=== PATIENT | female | born 1950 | race Caucasian/White ===

== ENCOUNTER 2017-03-11 08:33 | Emergency (ER) | payer OTHER ==
[2017-03-11 08:33] VITALS: BP 153/73; PULSE 90; RESP 16; TEMP 98.4; O2SAT 96
[~2017-03-11 08:33] MED LIST: CHOL50006 PO; FLAXPOW PO; SIMV40 PO; SYNT125T PO
[2017-03-11] MEDS ORDERED: VITA2000 PO (08:45)
[2017-03-11] MEDS ORDERED: PERC5TAB12 PO (08:45)
[2017-03-11] MEDS ORDERED: ZOCO80TA PO (08:45)
[2017-03-11] MEDS ORDERED: DIPH25CA PO (08:45)
[2017-03-11] MEDS ORDERED: LEVO.075 PO (08:45)
--- NOTE | 2017-03-11 09:29 | PD ---
HPI Chief Complaint: Pain: Acute or Chronic Time Seen by Provider: 09:16 Travel History International Travel<30 days: No Contact w/Intl Traveler<30days: No Traveled to known affect area: No History of Present Illness HPI 66 year old female here with left index finger pain and swelling 2 days. Patient cannot recall insect bite, puncture wounds or trauma to the finger. She reports yesterday she noticed mild erythema and the area was pruritic. She denies fever or chills. She has full range of motion of finger. The area was increasingly more swollen and red this morning prompting her visit. Symptom severity is moderate. No alleviating factors. PFSH Past Medical History Arthritis: Yes Autoimmune Disease: Yes (RA) Cardiovascular Problems: Yes (CHOL) High Cholesterol: Yes Diminished Hearing: No Kidney Stones: Yes Thyroid Disease: Yes Influenza Vaccination: Yes ?: Not Past Surgical History Hysterectomy: Yes Social History Alcohol Use: No Tobacco Use: No Substance Use: No Allergies-Medications (Allergen,Severity, Reaction): Coded Allergies: codeine (Unverified Allergy, Severe, 03/11/17) gentamicin (Unverified Allergy, Severe, 03/11/17) levofloxacin (Unverified Allergy, Severe, 03/11/17) methylprednisolone (Unverified Allergy, Severe, 03/11/17) Reported Meds & Prescriptions Reported Meds & Active Scripts Active Reported Diphenhydramine (Diphenhydramine HCl) 25 Mg Cap 25 Mg PO Q4H PRN Synthroid (Levothyroxine Sodium) 75 Mcg Tab 75 Mcg PO DAILY Zocor (Simvastatin) 80 Mg Tab 80 Mg PO HS Percocet (Oxycodone-Acetaminophen) 5-325 mg Tab 1 Tab PO Q6H PRN Vitamin D3 (Cholecalciferol) 2,000 Unit Cap 2,000 Units PO DAILY Review of Systems Except as stated in HPI: all other systems reviewed are Neg General / Constitutional: No: Fever Physical Exam Narrative GENERAL: Alert well-appearing female in no distress. SKIN: Warm and dry. Notable erythema and mild swelling to the left second digit. HEAD: Normocephalic. EYES: No scleral icterus. No injection or drainage. NECK: Supple, trachea midline. No JVD or lymphadenopathy. CARDIOVASCULAR: Regular rate and rhythm without murmurs, gallops, or rubs. RESPIRATORY: Breath sounds equal bilaterally. No accessory muscle use. GASTROINTESTINAL: Abdomen soft, non-tender, nondistended. MUSCULOSKELETAL: No cyanosis, or edema. Left hand: Notable erythema and mild swelling to the left second digit. There is a small 0.5 cm area of deeper erythema with central scab surrounded by furniture detailer diffuse erythema. The area is tender. She has full range of motion of the finger. Brisk cap refill. Data Data Last Documented VS Vital Signs Date Time Temp Pulse Resp B/P (MAP) Pulse Ox O2 Delivery O2 Flow Rate FiO2 03/11/17 08:33 98.4 90 16 153/73 (99) 96 Room Air Orders Orders Finger ([id number]) (03/11/17 09:21) MDM Medical Decision Making Medical Screen Exam Complete: Yes Emergency Medical Condition: Yes Differential Diagnosis Abscess, cellulitis, infected insect bite, retained foreign body Narrative Course 66-year-old female with pain and swelling to the left second digit 2 days. Patient cannot recall injury or trauma. On exam she has notable erythema and swelling with a small central scab to the medial aspect of the middle phalange. Incision and drainage of the area was performed. X-ray reveal []. The finger was splinted. Patient be discharged home with Bactrim and Keflex. She was encouraged to follow up with her primary doctor for recheck on Monday. Return prior if she develops new or worsening symptoms Procedures Procedure Narrative INCISION AND DRAINAGE OF ABSCESS: The area was prepped and was sterilely draped. Topical ethyl chloride was used to anesthetize the area properly. A number [11] scalpel was used to make a [2] mm incision across the area of the abscess. The abscess was drained.Sterile dressing applied. Diagnosis Primary Impression: Cellulitis Qualified Codes: L03.012 - Cellulitis of left finger Referrals: Primary Care Physician Additional Instructions: Soak the area twice daily and warm Epson salt soaks. Apply clean dry dressing. Follow-up with your doctor in 2 days for wound recheck. Return prior if he developed new or worsening symptoms Scripts Cephalexin (Keflex) 500 Mg Cap 500 MG PO Q6H for Infection for 10 Days, #40 CAP 0 Refills Prov: Erica Montilla 03/11/17 Sulfamethoxazole-Trimethoprim (Bactrim DS) 800-160 Mg Tab 1 TAB PO BID for Infection, #20 TAB 0 Refills Prov: Erica Montilla 03/11/17 Disposition: 01 DISCHARGE HOME Condition: Stable Erica Montilla Mar 11, 2017 09:29
--- NOTE | 2017-03-11 09:48 | RADRPT ---
EXAM DATE/TIME: 03/11/2017 09:32 [facility] COMPARISON: No previous studies available for comparison. INDICATIONS : Pain and swelling left index finger, no known injury MEDICAL HISTORY : None. SURGICAL HISTORY : None. ENCOUNTER: Initial ACUITY: 2 days PAIN SCORE: 6/10 LOCATION: Left FINDINGS: Examination of the second digit of the left hand demonstrates no evidence of fracture or dislocation. Degenerative changes. No radiopaque foreign bodies are seen. The soft tissue swelling. CONCLUSION: Degenerative change without fracture. Victorino Montague MD on March 11, 2017 at 9:45 Board Certified Radiologist. This report was verified electronically.
[2017-03-11] MEDS ORDERED: CEPH-460 PO (10:06)
[2017-03-11] MEDS ORDERED: BACT800T5 PO (10:06)
== END 2017-03-11 10:13 | disposition home or self-care (01) ==
LOC: PHED 08:33
DX: L03.012 Cellulitis of left finger (principal)
CPT/HCPCS: 10060; 73140

== ENCOUNTER 2017-09-05 14:14 | Emergency (ER) | payer OTHER ==
[~2017-09-05] VITALS: Ht 165.1 cm; Wt 80.5 kg
[~2017-09-05 14:14] MED LIST changes: +BACT800T5 PO; +CEPH-460 PO; -CHOL50006 PO; +DIPH25CA PO; -FLAXPOW PO; +LEVO.075 PO; +PERC5TAB12 PO; -SIMV40 PO; -SYNT125T PO; +VITA2000 PO; +ZOCO80TA PO
[2017-09-05 14:32] VITALS: BP 147/65; PULSE 85; RESP 18; TEMP 98.8; O2SAT 96
[2017-09-05] MEDS ORDERED: ROBA750T PO (16:08)
[2017-09-05] MEDS ORDERED: IBUP1TAB7 PO (16:10)
--- NOTE | 2017-09-05 16:10 | PD ---
HPI Chief Complaint: Musculoskeletal Complaint Time Seen by Provider: 16:00 Travel History International Travel<30 days: No Contact w/Intl Traveler<30days: No Traveled to known affect area: No History of Present Illness HPI 67-year-old female presents emergency department complaining of neck pain that is been present for approximately 1 week. Says she was at work last week and started spontaneously. Says the pain is located in the back of the neck that is worse with movement decreases somewhat with rest. Says she occasionally has some tingling in the upper shoulders but denies weakness or numbness. She denies recent injury or inciting events. Says that she has been able to relax over the last 2-3 days however the pain is persistent so she decided to come in for evaluation. Of note, patient has a history of a disc problem and previously saw Dr. Arguelles, neurosurgery who advised her to have surgery. Patient opted out of surgery and decided to go to physical therapy for her treatment. This was 6 years ago. She has had no issues up until now. She denies fevers or chills or upper respiratory symptoms. PFSH Past Medical History Arthritis: Yes Autoimmune Disease: Yes Cardiovascular Problems: Yes High Cholesterol: Yes Diminished Hearing: No Kidney Stones: Yes Thyroid Disease: Yes Influenza Vaccination: Yes ?: Not Past Surgical History Hysterectomy: Yes Social History Alcohol Use: No Tobacco Use: No Substance Use: No Allergies-Medications (Allergen,Severity, Reaction): Coded Allergies: codeine (Unverified Allergy, Severe, 09/05/17) gentamicin (Unverified Allergy, Severe, 09/05/17) levofloxacin (Unverified Allergy, Severe, 09/05/17) methylprednisolone (Unverified Allergy, Severe, 09/05/17) Reported Meds & Prescriptions Reported Meds & Active Scripts Active Ibuprofen 800 Mg Tab 800 Mg PO Q8H PRN 5 Days Robaxin (Methocarbamol) 750 Mg Tab 750 Mg PO TID 5 Days Reported Diphenhydramine (Diphenhydramine HCl) 25 Mg Cap 25 Mg PO Q4H PRN Synthroid (Levothyroxine Sodium) 75 Mcg Tab 75 Mcg PO DAILY Zocor (Simvastatin) 80 Mg Tab 80 Mg PO HS Percocet (Oxycodone-Acetaminophen) 5-325 mg Tab 1 Tab PO Q6H PRN Vitamin D3 (Cholecalciferol) 2,000 Unit Cap 2,000 Units PO HS Review of Systems Except as stated in HPI: all other systems reviewed are Neg Physical Exam Narrative GENERAL: Well-nourished, well-developed patient, in NAD SKIN: Focused skin assessment warm/dry. No rashes or lesions. HEAD: Normocephalic. Atraumatic. EYES: No scleral icterus. No injection or drainage. PERRLA, EOMI THROAT: No pharyngeal injection, exudates, or tonsillar hypertrophy. Airway is patent. NECK: Trachea midline. No JVD or lymphadenopathy. No meningismus. TTP to SCM muscles with obvious spasms. Posterior R musculature more prominent than right. No meningismus. No midline tenderness. neurovascular intact bilateral upper extremities. CARDIOVASCULAR: Regular rate and rhythm without murmurs, gallops, or rubs. RESPIRATORY: Breath sounds equal bilaterally. No accessory muscle use. No wheezes, rales, or rhonchi MUSCULOSKELETAL: No cyanosis, or edema. BACK: Nontender without obvious deformity. No CVA tenderness. Data Data Last Documented VS Vital Signs Date Time Temp Pulse Resp B/P (MAP) Pulse Ox O2 Delivery O2 Flow Rate FiO2 09/05/17 14:32 98.8 85 18 147/65 (92) 96 MDM Medical Decision Making Medical Screen Exam Complete: Yes Emergency Medical Condition: Yes Differential Diagnosis Cervical sprain, cervical strain, cervical fracture, whiplash Narrative Course 67-year-old female presents emergency department complaining of neck pain that is been present for approximately 1 week. Says she was at work last week and started spontaneously. Says the pain is located in the back of the neck that is worse with movement decreases somewhat with rest. Says she occasionally has some tingling in the upper shoulders but denies weakness or numbness. She denies recent injury or inciting events. Says that she has been able to relax over the last 2-3 days however the pain is persistent so she decided to come in for evaluation. Of note, patient has a history of a disc problem and previously saw Dr. Arguelles, neurosurgery who advised her to have surgery. Patient opted out of surgery and decided to go to physical therapy for her treatment. This was 6 years ago. She has had no issues up until now. She denies fevers or chills or upper respiratory symptoms. Vital signs are stable. Physical exam findings consistent with torticollis versus severe muscle spasms. Patient be discharged with Robaxin and ibuprofen. She is advised to use caution as the muscle relaxers may make her very drowsy. She states understanding will comply. Also advised to follow-up with a primary care physician. Consider reevaluation by Dr. Arguelles in physical therapy. Diagnosis Primary Impression: Torticollis Referrals: Primary Care Physician Departure Forms: Tests/Procedures, Work Release Enter return to work date: Sep 08, 2017 Additional Instructions: Use caution when taking muscle relaxers as a may make you feel drowsy. Use heat and ice for symptom relief. Perform light stretches of the neck and upper back. If no contraindications, you may use Tylenol or Motrin per package instructions to reduce pain. Return to the ED if your symptoms persist or worsen. Follow up with your primary care office within 2 days. Scripts Ibuprofen (Ibuprofen) 800 Mg Tab 800 MG PO Q8H Y for Pain/Inflammation for 5 Days, #15 TAB 0 Refills Prov: Fide Cortez MD 09/05/17 Methocarbamol (Robaxin) 750 Mg Tab 750 MG PO TID for Muscle Spasm for 5 Days, TAB 0 Refills Prov: Fide Cortez MD 09/05/17 Disposition: 01 DISCHARGE HOME Condition: Stable Tiffanie Ruff September 05, 2017 16:10
== END 2017-09-05 16:21 | disposition home or self-care (01) ==
LOC: PHEFT 14:14
DX: M43.6 Torticollis (principal); M19.90 Unspecified osteoarthritis, unspecified site; E78.00 Pure hypercholesterolemia, unspecified; E07.9 Disorder of thyroid, unspecified; Z87.442 Personal history of urinary calculi; Z79.899 Other long term (current) drug therapy; Z88.5 Allergy status to narcotic agent; Z88.8 Allergy status to other drugs, medicaments and biological substances
CPT/HCPCS: 99283